=== PATIENT | female | born 1985 | race Caucasian/White ===

== ENCOUNTER 2024-09-03 22:53 | Emergency (ER) | payer OTHER ==
[~2024-09-03] VITALS: Ht 165.1 cm; Wt 52.2 kg
[~2024-09-03 22:53] MED LIST: TOBR.3OPSO OP
[2024-09-04 00:24] LABS: CORONAVIRUS COVID-19 AG Negative (NEGATIVE); INFLUENZA A AG Negative (NEGATIVE); INFLUENZA B AG Negative (NEGATIVE)
== END 2024-09-04 01:02 | disposition home or self-care (01) ==
LOC: ER 22:53
PROVIDERS: Physician Assistant
DX: J06.9 Acute upper respiratory infection, unspecified (principal)
CPT/HCPCS: 87428-QW; 99284